=== PATIENT | male | born 1995 | race Caucasian/White ===

== ENCOUNTER → 2020-10-21 08:04 | Outpatient (BNVA) | payer OTHER, SELFPAY | PROVIDERS: Visit Provider Internal Medicine | DX: S39.012A Strain of muscle, fascia and tendon of lower back, initial encounter (principal); X50.3XXA Overexertion from repetitive movements, initial encounter | CPT/HCPCS: 99202 ==

== ENCOUNTER → 2020-10-28 08:21 | Outpatient (BNVA) | payer OTHER, SELFPAY | PROVIDERS: Visit Provider Internal Medicine | DX: M54.5 Low back pain (principal) | CPT/HCPCS: 99213 ==

== ENCOUNTER → 2020-10-31 08:28 | Outpatient (BNVA) | payer OTHER, SELFPAY | PROVIDERS: Visit Provider Internal Medicine | DX: M54.9 Dorsalgia, unspecified (principal) | CPT/HCPCS: 99213 ==

== ENCOUNTER → 2020-11-10 08:19 | Outpatient (BNVA) | payer OTHER, SELFPAY | PROVIDERS: PCP Internal Medicine; Visit Provider Internal Medicine | DX: G89.29 Other chronic pain (principal); M54.5 Low back pain | CPT/HCPCS: 99213 ==

== ENCOUNTER → 2020-11-24 08:15 | Outpatient (BNVA) | payer OTHER, SELFPAY | PROVIDERS: PCP Internal Medicine; Visit Provider Internal Medicine | DX: M54.9 Dorsalgia, unspecified (principal) | CPT/HCPCS: 99213 ==

== ENCOUNTER 2020-11-29 15:00 | Outpatient (RCR) | payer OTHER, BC, SELFPAY ==
--- NOTE | 2020-11-04 15:34 | MHC.PT.EP ---
[facility] [place] [facility] [place] [facility] [place] [facility] [address] Mario Boykin [address] [phone] F: [phone] F: [phone] F: [phone] F: [phone] Physical Therapy Plan of Care Date of Evaluation: Date of Surgery: Diagnosis: This is a 25 yo male presenting to skilled PT with a script for DDD. Assessment: This is a 25 yo male presenting to skilled PT with a script for DDD. Patient reports a history of throwing his back out since he was 20yo. CHELA includes bending to tie shoes, running, snowboarding (no fall) and now most recently lifting a slab of asphalt at work. 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 Symptoms were increased later that night. Injury occurred on 10/20. He is being followed by work connection. After symptoms increased he was unable to walk. He reports pain today that is centralized at the low back (L4/5) but did have radiating symptoms down the L posterior leg to the knee. Pain is described as achy now but was sharp. Assessment reveals pain that ranges up to a 6/10. He demos decreased lumbar and hip ROM, decreased hip and glut strength, impaired gait pattern with ? shift and sacral rotation, impaired joint mobility with pain at lower lumbar spine as well as gross functional decline with gym routine, prolonged postures and work related activities. He appears to have a ? lateral shift and was provided HEP to assess response. He is a good candidate for skilled PT 2x/wk for 5wks. Frequency and Duration: The patient will be seen 2x/wk for 5wks Short Term Goals: I in HEP Demo normal alignment without radiating symptoms Residential Goals: Perform lift test without pain Return to work in full Demo 5/5 LE strength Improve Oswestry to normal Treatment Plan: Modalities to reduce pain, spasms and effusion. Manual therapy to restore motion and function. Therapeutic exercise to improve strength and flexibility. Neuromuscular re-education for posture and balance. Therapeutic activities to return to functional activities of daily living. Electronically signed by: Bebe Barajas PT Please sign and return to therapist. Thank you for your referral.
--- NOTE | 2020-12-21 13:32 | MHC.PT.DC ---
[facility] [place] [facility] [place] [facility] [place] [facility] [address] Mario Boykin [address] [phone] F: [phone] F: [phone] F: [phone] F: [phone] Physical Therapy Discharge Report Diagnosis: This is a 25 yo male presenting to skilled PT with a script for DDD. Date of Surgery: Date of Evaluation: 11/04/20 Date of Discharge: 12/21/20 Treatments to Date: 7 Cancellations to Date: 0 No Shows to Date: 0 Discharge Status: Achieved Goals Improved Function Independent with HEP Discharge Summary: Patient without increase in symptoms. Work connection has DC'd him from their care. Patient to return to normal activities and understands the need to modify exercise routine for some time while continuing to heal. Kept chart open for a few weeks prior to DC. He has returned to gym and was educated on safe lifting techniques Electronically signed by: Bebe Barajas PT Please sign and return to therapist. Thank you for your referral.
== END 2020-12-21 13:32 | disposition home or self-care (01) ==
LOC: HO.PTCHIC 15:00
PROVIDERS: PCP Internal Medicine; Visit Provider Internal Medicine
DX: Z87.39 Personal history of other diseases of the musculoskeletal system and connective tissue (principal)
CPT/HCPCS: 97110; 97140; 97161; 97530